=== PATIENT | female | born 1965 | race Asian ===

== ENCOUNTER 2022-02-12 15:14 | Emergency (ER) | payer SELFPAY ==
[2022-02-12 16:11] VITALS: BP 131/76
--- NOTE | 2022-02-12 16:52 | XRay Report ---
RIGHT SHOULDER 3 VIEW(S) INDICATION / CLINICAL INFORMATION: shoulder pain. COMPARISON: None available. FINDINGS: BONES / JOINT(S): No acute fracture or subluxation. No significant arthritis. SOFT TISSUES: 8 mm focus of calcification along the anterior surface of the proximal right humeral sh aft possibly adjacent to the biceps tendon. ADDITIONAL FINDINGS: None. IMPRESSION: 1. No acute fracture or subluxation. 2. Possible focus of calcium hydroxyapatite deposition along the right biceps tendon (calcific tendin itis). Signer Name: Zackary Bautista MD Signed: 02/12/2022 4:48 PM Workstation Name: [id number]
== END 2022-02-12 21:30 | disposition left against medical advice (07) ==
LOC: ED 15:14
DX: M79.601 Pain in right arm (principal); Z53.21 Procedure and treatment not carried out due to patient leaving prior to being seen by health care provider